=== PATIENT | female | born 1935 | race Caucasian/White ===

== ENCOUNTER 2019-10-09 22:43 | Inpatient (IN) | payer MEDICARE ==
[~2019-10-09] VITALS: Ht 162.6 cm; Wt 109.2 kg
--- NOTE | ~2019-10-09 | EC ---
PATIENT:HE MELARA DATE OF SERVICE: 10/10/19 SEX: F MEDICAL RECORD: [id number] DATE OF : 33 LOCATION:D.[facility] AGE OF PATIENT: 84 ADMISSION DATE: 10/10/19 REFERRING PHYSICIAN: INTERPRETING PHYSICIAN: PARVIN RIOS MD ECHOCARDIOGRAM REPORT ECHO CHARGES 4 ECHO COMPLETE Date: 10/13/19 CLINICAL DIAGNOSIS: CHF ECHOCARDIOGRAPHIC MEASUREMENTS (adult normal given) AC root (d.<3.7cm) 2.7 cm LV Septum d (<1.2 cm> 1.1 cm Valve Excursion 1.7 cm LV Septum (systole) 1.5 cm Left Atria (s.<4.0cm> 4.8 cm LVPW d(<1.2cm) 1.3 cm RV (d.<2.3cm) 3.2 cm LVPW (sytole) 1.4 cm LV diastole(<5.6CM) 4.5 cm MV E-F(>70mm/sec) cm LV systole 3.7 cm LVOT Diameter 1.7 cm MV exc.(>10mm) cm Est.ejection fraction (50-75%) % DOPPLER: LVIT cm/sec A 63 cm/sec E cm/sec LA cm/sec RVSP 34.8 mmHg LVOT 64 cm/sec AOP1/2T m/s Asc. Ao 218 cm/sec RVOT 47 cm/sec RA cm/sec PA 65 cm/sec AV Gradient Peak 19.0 mmHg AV Mean 12.7 mmHg AV Area 0.5 cm MV Gradient Peak 5.4 mmHg MV Mean 2.2 mmHg MV Area cm COMMENTS: Collection Advisor: Marlys [facility] Production Scheduler: Marilnyn Rios TAPE# PACS Pericardial Effusion N DATE OF SERVICE: PROCEDURE: Transthoracic echocardiogram. FINDINGS: 1. Left ventricle: Normal size, evidence of LVH, ejection fraction 30% to 35%. There is global hypokinesis. 2. Left atrium is moderately dilated at 4.8 cm. 3. Aortic valve appears to be normal. 4. Mitral valve has mild mitral regurgitation, otherwise structurally normal. ECHOCARDIOGRAM REPORT [id number] HE MELARA 5. Tricuspid valve has mild tricuspid regurgitation, RVSP of 34.8 mmHg. 6. Right ventricle is mild to moderately enlarged with mild global hypokinesis. 7. Right atrium is moderately enlarged. TRANSINT:[id number] Voice Confirmation ID: [id number] DOCUMENT ID: [id number] PARVIN RIOS MD CC: [id number] DICTATION DATE: 10/13/191718 ON SITE PROPERTY MANAGER: 10/13/19 174 ADM IN [facility] [id number] [place] [address]
--- NOTE | 2019-10-09 23:10 | NUR ---
PT TO RADIOLOGY VIA STRETCHER.
[2019-10-10] VITALS (7 sets, daily range): BP systolic 95–123; BP diastolic 50–79; Ht 162.6 cm; Wt 109.2 kg
--- NOTE | 2019-10-10 | NUR ---
PT RETURNED FROM RADIOLOGY.
[2019-10-10 00:58] LABS: BASOPHILS 0.3 % (0-2); EOSINOPHILS 1.6 % (0-7); HEMATOCRIT 40.5 % (36.0-48.0); HEMOGLOBIN 13.7 g/dL (12-16); IMMATURE GRANULOCYTES 0.3 % (0-5); LYMPHOCYTES 20.7 % (15-50); MCH 32.9 pg (26.0-34.0); MCHC 33.8 g/dL (31.0-37.0); MCV 97.1 fL (80.0-100.0); MEAN PLATELET VOLUME 10.4 fL (7.4-10.4); MONOCYTES 11.4 % (2-11); NEUTROPHILS 65.7 % (40-80); PLATELET COUNT 151 10x3/uL (130-400); RBC 4.17 10x6/uL (4.00-5.40); RDW 13.3 % (11.5-14.5); WBC 6.9 10x3/uL (4.8-10.8)
[2019-10-10 01:09] LABS: CALC OSMOLALITY 274 mosm/kg (275-300); CALCIUM 9.1 mg/dL (8.5-10.1); CARBON DIOXIDE 29.1 mmol/L (21.0-32.0); CHLORIDE - SERUM 101 mmol/L (98-107); CREATININE - SERUM 1.7 mg/dL (0.6-1.3); GLUCOSE 118 mg/dL (74-106); POTASSIUM - SERUM 3.6 mmol/L (3.5-5.1); SODIUM 134 mmol/L (136-145); UREA NITROGEN 29 mg/dL (7-18); eGFR NON AFRICAN AMERICAN 30 mL/min (90-120)
[2019-10-10 01:12] LABS: APTT 39.6 SECONDS (22.8-39.4); INR 2.75 (0.85-1.17); PROTIME 28.6 SECONDS (11.6-15.0)
--- NOTE | 2019-10-10 01:25 | NUR ---
PT ASSISTED WITH BEDPAN. DENIES ANY FURTHER NEEDS AT THIS TIME. WILL CONTINUE TO MONITOR.
[2019-10-10 01:30] LABS: ALBUMIN 3.2 g/dL (3.4-5.0); ALKALINE PHOSPHATASE 44 U/L (30-120); ALT (SGPT) 18 U/L (10-68); BILIRUBIN - TOTAL 1.31 mg/dL (0.2-1.3); CKMB 1.2 U/L (0.0-3.6); CREATINE KINASE 77 UL (21-215); MAGNESIUM - SERUM 1.4 mg/dL (1.8-2.4); PROTEIN - SERUM 7.2 g/dL (6.4-8.2); THYROID STIMULATING HORMONE 3.51 uIU/mL (0.36-3.74)
[2019-10-10 01:31] LABS: PRO BNP 0 pg/mL (0-450); TROPONIN-I < 0.017 ng/mL (0.000-0.060)
[2019-10-10 01:39] LABS: BILIRUBIN NEGATIVE (NEGATIVE); GLUCOSE NEGATIVE (NEGATIVE); KETONE NEGATIVE (NEGATIVE); NITRITE NEGATIVE (NEGATIVE); SPECIFIC GRAVITY 1.015 (1.005-1.020); UROBILINOGEN NORMAL (NORMAL)
[2019-10-10 01:40] LABS: BACTERIA NONE SEEN /hpf (NEGATIVE); EPITHELIAL CELLS 0-5 /hpf (0-5); RED CELLS - URINE NONE SEEN /hpf (0-5); UDS - AMPHET NEGATIVE QUAL (NEGATIVE); UDS - BARB NEGATIVE QUAL (NEGATIVE); UDS - BENZO NEGATIVE QUAL (NEGATIVE); UDS - COCAINE NEGATIVE QUAL (NEGATIVE); UDS - OPIATE NEGATIVE QUAL (NEGATIVE); UDS - PCP NEGATIVE QUAL (NEGATIVE); UDS - THC NEGATIVE QUAL (NEGATIVE); WHITE CELLS - URINE 0-5 /hpf (NEGATIVE)
--- NOTE | 2019-10-10 03:45 | NUR ---
PT ARRIVED VIA BED WITH ER NURSE [facility] AND ROOMMATE. ON 3L OF O2 VIA NC. PT TRANSFERRED TO UNIT BED. PUREWICK PLACED. CL IN REACH. BED IN LOW SIDE RAILS X2. DUCKWATER. WEARS READING GLASSES. 3 KENNY TO BACK OF HEAD. RIGHT FOREARM IV SALINE INFUSING AT 75M/HR. WILL CONTINUE TO MONITOR. PT ALSO HAS HOME CIPAP.
--- NOTE | 2019-10-10 04:00 | NUR ---
telemetry placed on pt and scd's in place. 92 controlled afib
--- NOTE | 2019-10-10 08:00 | NUR ---
PATIENT NEURO CHECKS COMPLETED. CL IN REACH. NO FURTHER NEEDS AT THIS TIME. SHIFT ASSESSMENT COMPLETE. BED ALARM ON. WCTM
[2019-10-10] MEDS ORDERED: FENOFIBRATE134 MG PO (10:05)
[2019-10-10] MEDS ORDERED: ZYRTEC10 MG PO (10:07)
[2019-10-10] MEDS ORDERED: PAXIL20 MG PO (10:07)
[2019-10-10] MEDS ORDERED: FISH OIL 1,0001 CA1 PO (10:08)
[2019-10-10] MEDS ORDERED: CHLORTHALIDONE25 MG PO (10:09)
[2019-10-10] MEDS ORDERED: XARELTO20 MG PO (10:10)
[2019-10-10] MEDS ORDERED: NEXIUM20 MG PO (10:10)
[2019-10-10] MEDS ORDERED: METOPROLOL TART50 MG PO ×2 (10:11→10:12)
--- NOTE | 2019-10-10 10:43 | NUR ---
PATIENT ROOMMATE IN ROOM. MED RECONCILED. TOLD HER TO TAKE HOME MEDICATIONS HOME AND SOON THEY RESTART HOME MEDS I WILL TREAT. CL IN REACH. BED ALARM ON. FRESH WATER GIVEN. NO FURTHER NEEDS AT THIS TIME. SUJEY
--- NOTE | 2019-10-10 13:56 | NUR ---
PATIENT SAT UP FOR LUNCH. BACK TO BED NOW. MID ASSIST. PATIENT ROOMMATE LEAVING. CL IN REACH. BED ALARM ON. TM
--- NOTE | 2019-10-10 20:00 | NUR ---
PATIENT RESTING IN BED WATCHING TV. NO S/S OF ACUTE DISTRESS. NO C/O AT THIS TIME. PATIENT IS CONFUSED TO SITUATION. PATIENT IS ON 2L OF O2 NASAL CANNULA. PATIENT WEARS A BIPAP FROM HOME AT NIGHT. PATIENT HAS A RIGHT FOREARM, NORMAL SALINE @ 75 ML/HR. IV IS PATENT WITHOUT REDNESS, SWELLING, OR TENDERNESS. PATIENT IS ON TELEMETRY: 101 UNCONTROLLED A-FIB. PATIENT HAS BACK BRACE ON. PATIENT HAS LACERATION WITH KENNY ON BACK OF HEAD. CALL LIGHT WITHIN REACH. BED ALARM ON. WILL CONTINUE TO MONITOR.
[2019-10-11] VITALS: BP 115/47
--- NOTE | 2019-10-11 02:59 | NUR ---
I have reviewed this patient and I concur with the Shift Assessment completed by the Licensed Practical Nurse today this shift.
--- NOTE | 2019-10-11 03:20 | NUR ---
PATIENT PULLED IV OUT, CATHETER TIP INTACT. WILL TRY TO PLACE ANOTHER. CALL LIGHT WITHIN REACH. BED ALARM ON. WILL CONTINUE TO MONITOR.
--- NOTE | 2019-10-11 03:40 | NUR ---
JEAN CLAUDE CUTLER, PLACE ANOTHER IV IN RIGHT FOREARM. IV IS PATENT WITHOUT REDNESS, SWELLING, OR TENDERNESS. CALL LIGHT WITHIN REACH. WILL CONTINUE TO MONITOR.
[2019-10-11 04:00] VITALS: BP 141/66
[2019-10-11 06:09] LABS: BASOPHILS 0 % (0-2); EOSINOPHILS 0 % (0-7); HEMATOCRIT 40.6 % (36.0-48.0); HEMOGLOBIN 13.4 g/dL (12-16); IMMATURE GRANULOCYTES 0.2 % (0-5); LYMPHOCYTES 9.2 % (15-50); MCH 32.1 pg (26.0-34.0); MCV 97.1 fL (80.0-100.0); MEAN PLATELET VOLUME 10.7 fL (7.4-10.4); MONOCYTES 6.5 % (2-11); NEUTROPHILS 84.1 % (40-80); RBC 4.18 10x6/uL (4.00-5.40); RDW 13.2 % (11.5-14.5)
[2019-10-11 06:20] LABS: PLATELET COUNT 187 10x3/uL (130-400); WBC 10.5 10x3/uL (4.8-10.8)
[2019-10-11 06:40] LABS: ALBUMIN 3.2 g/dL (3.4-5.0); ANION GAP 12.1 mmol/L (8-16); BILIRUBIN - TOTAL 0.78 mg/dL (0.2-1.3); CALCIUM 9.5 mg/dL (8.5-10.1); CARBON DIOXIDE 25.9 mmol/L (21.0-32.0); CREATININE - SERUM 1.8 mg/dL (0.6-1.3); MAGNESIUM - SERUM 1.9 mg/dL (1.8-2.4); PHOSPHOROUS 2.9 mg/dL (2.5-4.9); PROTEIN - SERUM 7.4 g/dL (6.4-8.2)
--- NOTE | 2019-10-11 07:00 | NUR ---
PATIENT HADN'T URINATED TO MY KNOWLEDGE AND I BLADDER SCANNED HER. THE PATIENT HAD 508 ML ACCORDING TO THE BLADDER SCANNER. PATIENT WAS ON THE PUREWICK, AND SAID THAT SHE FELT SHE NEEDED TO PEE. I GOT THE PATIENT UP TO THE BEDSIDE COMMODE AND SHE URINATED 550 ML. PATIENT TRANFERRED BACK TO BED. CALL LIGHT WITHIN REACH. BED ALARM ON. WILL CONTINUE TO MONITOR.
--- NOTE | 2019-10-11 08:00 | NUR ---
ASSESSMENT PER FLOW SHEET. PATIENT IS WITHOUT DISTRESS.CONFUSED THIS AM.FALL PREVENTION IN PLACE. MONITOR FOR NEEDS.
[2019-10-11 09:41] VITALS: BP 90/51
[2019-10-11 13:45] VITALS: BP 150/67
--- NOTE | 2019-10-11 15:55 | NUR ---
HAS REFUSED 1500 MEDS PER MAR. MORE CONFUSED THIS AFTERNOON.MONITOR
[2019-10-11 16:00] VITALS: BP 109/57
[2019-10-11 20:00] VITALS: BP 110/57
--- NOTE | 2019-10-11 20:00 | NUR ---
PATIENT RESTING IN BED WITH ROOM MATE AT [facility]. NO S/S OF ACUTE DISTRESS. NO C/O AT THIS TIME. PATIENT IS CONFUSED AND TALKING ABOUT "THE PEOPLE WHO ARE PAINTING THE CEILING TONIGHT." PATIENT WEARS 2L OF O2 NASAL CANNULA. PATIENT WEARS BIPAP FROM HOME AT BEDTIME. PATIENT HAS A RIGHT FOREARM IV, NORMAL SALINE @ 75 ML/HR. IV IS PATENT WITHOUT REDNESS, SWELLING, OR TENDERNESS. PATIENT IS ON TELEMETRY: 118 UNCONCTROLLED A-FIB. PATIENT HAS SCRATCHES ON RIGHT KNEE AND A LACERATION WITH KENNY ON THE BACK OF HER HEAD. CALL LIGHT WITHIN REACH. BED ALARM ON. WILL CONTINUE TO MONITOR.
[2019-10-12] VITALS: BP 112/87
--- NOTE | 2019-10-12 02:50 | NUR ---
TELEMETRY CALLED AND PATIENT'S TELEMETRY IS READING 153 BPM UNCONTROLLED A-FIB. ROSMERY REILLY WAS PAGED. ROSMERY ORDERED A CARDIOLOGY CONSULT. CARDIOLOGY CONSULT ORDERED WITH ON-CALL DOCTOR STACY. DR. KUMAR PAGED. DR. KUMAR ORDERED 5MG OF LOPRESSOR IV. JEAN CLAUDE GALAN, PUSHED LOPRESSOR IV. CALL LIGHT WITHIN REACH. BED ALARM ON. WILL CONTINUE TO MONITOR.
--- NOTE | 2019-10-12 02:59 | NUR ---
PATIENT IS NOW DOWN TO 124 BPM UNCONTROLLED A-FIB. CALL LIGHT WITHIN REACH. WILL CONTINUE TO MONITOR.
--- NOTE | 2019-10-12 03:52 | NUR ---
I have reviewed this patient and I concur with the Shift Assessment completed by the Licensed Practical Nurse today this shift.
[2019-10-12 04:00] VITALS: BP 102/71
[2019-10-12 05:29] LABS: BASOPHILS 0 % (0-2); EOSINOPHILS 0 % (0-7); HEMATOCRIT 42.2 % (36.0-48.0); HEMOGLOBIN 13.8 g/dL (12-16); IMMATURE GRANULOCYTES 0.3 % (0-5); LYMPHOCYTES 10.8 % (15-50); MCH 32.4 pg (26.0-34.0); MCHC 32.7 g/dL (31.0-37.0); MEAN PLATELET VOLUME 11.1 fL (7.4-10.4); MONOCYTES 5.4 % (2-11); NEUTROPHILS 83.5 % (40-80); RBC 4.26 10x6/uL (4.00-5.40); RDW 13.7 % (11.5-14.5); WBC 9.3 10x3/uL (4.8-10.8)
[2019-10-12 05:36] LABS: ANION GAP 10.9 mmol/L (8-16); CALCIUM 9.3 mg/dL (8.5-10.1); CARBON DIOXIDE 27.4 mmol/L (21.0-32.0); CREATININE - SERUM 1.8 mg/dL (0.6-1.3); MAGNESIUM - SERUM 1.8 mg/dL (1.8-2.4); POTASSIUM - SERUM 4.3 mmol/L (3.5-5.1)
[2019-10-12 05:41] LABS: MCV 99.1 fL (80.0-100.0); PLATELET COUNT 228 10x3/uL (130-400)
[2019-10-12 08:45] VITALS: BP 97/61
--- NOTE | 2019-10-12 09:00 | NUR ---
ASSESSMENT PER FLOW SHEET. PATIENT IS WITHOUT DISTRESS. FALL PREVENTION IN PLACE.
[2019-10-12 13:15] VITALS: BP 124/85
--- NOTE | 2019-10-12 15:43 | NUR ---
PATIENT HAS BEEN YELLING OUT AND PULLING CPAP AND O2 OFF. DOOR OPEN TO MONITOR
--- NOTE | 2019-10-12 17:30 | NUR ---
PATIENT UP NAKED IN VICENTE. SHE HAS PULLED OUT HER IV WITH CATH TIP INTACT. SHE REFUSES CPAP,TELEMETRY AND WANTS TO SIT IN CHAIR. REFUSES IV AT PRESENT
[2019-10-12 17:46] VITALS: BP 112/83
[2019-10-12 20:00] VITALS: BP 132/74
--- NOTE | 2019-10-12 20:00 | NUR ---
PATIENT IN BED WITH FRIEND AT BEDSIDE. NO S/S OF ACUTE DISTRESS. NO C/O AT THIS TIME. PATIENT IS CONFUSED AND VERY AGITATED. PATIENT IS ON 2L OF O2 WHEN SHE KEEPS IT ON. PATIENT IS SUPPOSED TO BE ON TELEMETRY, BUT SHE KEEPS TAKING IT OFF. PATIENT HAD TAKEN OUT HER IV DURING THE DAY, AND REFUSING ANOTHER ONE BEING PLACED AT THIS TIME. WILL TRY AGAIN LATER. PATIENT HAS SCRAPES TO THE RIGHT KNEE AND KENNY TO THE BACK OF HER HEAD. CALL LIGHT WITHIN REACH. BED ALARM ON. WILL CONTINUE TO MONITOR.
--- NOTE | 2019-10-12 22:00 | NUR ---
PATIENT CONTANTLY TRYING TO GET OUT OF BED EVEN WITH FIREND AT BEDSIDE. PATIENT WILL NOT LISTEN TO THE FRIEND OR TO ME. PATIENT IS CUSSING AND THROWING THINGS AT ANYONE THAT TRIES TO HELP HER. ROSMERY WAS PAGED. ROSMERY PUT IN AN ORDER FOR NATALIIA.
[2019-10-13] VITALS: BP 145/80
--- NOTE | 2019-10-13 02:46 | NUR ---
PATIENT IS RESTING IN BED WITH EYES CLOSED. O2 @ 2L ON. CALL LIGHT WITHIN REACH. BED ALARM ON. WILL CONTINUE TO MONITOR.
--- NOTE | 2019-10-13 03:36 | NUR ---
I have reviewed this patient and I concur with the Shift Assessment completed by the Licensed Practical Nurse today this shift.
[2019-10-13 04:00] VITALS: BP 111/70
[2019-10-13 07:52] LABS: ANION GAP 16.6 mmol/L (8-16); CALCIUM 9.6 mg/dL (8.5-10.1); CARBON DIOXIDE 22.7 mmol/L (21.0-32.0); CREATININE - SERUM 2.1 mg/dL (0.6-1.3); MAGNESIUM - SERUM 1.9 mg/dL (1.8-2.4)
[2019-10-13 07:53] LABS: BASOPHILS 0.1 % (0-2); EOSINOPHILS 0 % (0-7); HEMATOCRIT 45.2 % (36.0-48.0); IMMATURE GRANULOCYTES 0.8 % (0-5); LYMPHOCYTES 14.6 % (15-50); MCH 32.9 pg (26.0-34.0); MCHC 33.2 g/dL (31.0-37.0); MCV 99.1 fL (80.0-100.0); MONOCYTES 11.6 % (2-11); NEUTROPHILS 72.9 % (40-80); RBC 4.56 10x6/uL (4.00-5.40); RDW 13.8 % (11.5-14.5); WBC 11.5 10x3/uL (4.8-10.8)
[2019-10-13 07:55] LABS: PLATELET COUNT 154 10x3/uL (130-400)
[2019-10-13 07:58] LABS: POTASSIUM - SERUM 5.3 mmol/L (3.5-5.1)
[2019-10-13 08:59] VITALS: BP 115/44
[2019-10-13 12:10] VITALS: BP 124/92
--- NOTE | 2019-10-13 15:00 | NUR ---
ASSISTED PATIENT UP TO BSC AND BACK TO BED. IV INTACT. CALL LIGHT WITHIN REACH. FAMILY AT BEDSIDE.
[2019-10-13 16:50] VITALS: BP 125/88
--- NOTE | 2019-10-13 18:45 | NUR ---
PATIENT IV RESTARTED IN LEFT UPPER ARM X 1 STICK. PATIENT TOLERATED WITH SMALL AMOUNT OF PAIN. NO COMPLAINTS OR SIGNS OF DISTRESS. ASSISTED PATIENT UP TO BSC AND BACK TO BED. CALL LIGHT WITHN REACH. FAMILY AT BEDSIDE.
--- NOTE | 2019-10-13 18:47 | NUR ---
PATIENT IN BED WITH IV INTACT. NO COMPLAINTS OR SIGNS OF DISTRESS. FAMILY AT BEDSIDE. CALL LIGHT WITHIN REACH.
--- NOTE | 2019-10-13 19:20 | NUR ---
ASSISTED PATIENT BACK TO BED FROM [facility]. PATIENT VOIDED AND HAD SMALL BM. PATIENT AND GUEST AT BEDSIDE DENY NEEDS AT THIS TIME. BED IN LOWEST POSITION AND CALL LIGHT WITHIN REACH. ENCOURAGED THE PATIENT TO CALL IF SHE HAS NEEDS. WILL CONTINUE TO MONITOR.
[2019-10-13 20:00] VITALS: BP 130/75
[2019-10-14] VITALS: BP 133/89
[2019-10-14 04:00] VITALS: BP 132/87
[2019-10-14 05:36] LABS: BASOPHILS 0.1 % (0-2); EOSINOPHILS 0.4 % (0-7); HEMATOCRIT 44.2 % (36.0-48.0); HEMOGLOBIN 14.8 g/dL (12-16); IMMATURE GRANULOCYTES 1.1 % (0-5); LYMPHOCYTES 12.3 % (15-50); MCH 32.8 pg (26.0-34.0); MCHC 33.5 g/dL (31.0-37.0); MEAN PLATELET VOLUME 12.6 fL (7.4-10.4); MONOCYTES 10.5 % (2-11); NEUTROPHILS 75.6 % (40-80); PLATELET COUNT 128 10x3/uL (130-400); RBC 4.51 10x6/uL (4.00-5.40); RDW 13.7 % (11.5-14.5)
[2019-10-14 05:38] LABS: WBC 8.4 10x3/uL (4.8-10.8)
[2019-10-14 05:48] LABS: ANION GAP 15.7 mmol/L (8-16); CALCIUM 9.7 mg/dL (8.5-10.1); CARBON DIOXIDE 23.3 mmol/L (21.0-32.0); CREATININE - SERUM 1.6 mg/dL (0.6-1.3); MAGNESIUM - SERUM 1.7 mg/dL (1.8-2.4); PHOSPHOROUS 2.5 mg/dL (2.5-4.9)
[2019-10-14 08:27] VITALS: BP 132/68
[2019-10-14 12:41] VITALS: BP 151/63
--- NOTE | 2019-10-14 16:15 | NUR ---
walked in room. PATIENT BLUE IN FACE. SAT 84%. O2 WAS OFF. I PUT HER O2 ON. WOKE HER UP. TOLD HER TO DEEP BREATHE. SHE DID. GOT PULSE OX BACK UP TO 92% ON 3 L. ADDED HUMIDIFIER TO SEE IF THAT WOULD HELP HER KEEP IT ON. ASSISTED ON TO BEDPAN. AND OFF. IV STILL INTACT TO LEFT FOREARM. COVERED WITH SLEEVE. CL IN REACH. BED ALARM ON. WCTM
[2019-10-14 16:46] VITALS: BP 124/70
--- NOTE | 2019-10-14 19:00 | NUR ---
PATIENT RESTING IN BED WITH NO S/S OF DISTRESS. PATIENT DENIES NEEDS AT THIS TIME. BED IN LOWEST POSITION, CALL LIGHT WITHIN REACH, AND BED ALARM ON. ENCOURAGED THE PATIENT TO CALL IF SHE HAS NEEDS. WILL CONTINUE TO MONITOR.
--- NOTE | 2019-10-14 19:42 | NUR ---
RESPONDED TO PATIENT'S BED ALARM. PATIENT CLIMBING OUT OF BED. ASSISTED PATIENT TO THE BSC. PATIENT VOIDED. ASSISTED PATIENT BACK TO BED AND EDUCATED PATIENT ON USE OF THE CALL LIGHT. PATIENT VERBALIZED UNDERSTANDING AND RETURNED DEMONSTRATION. PATIENT DENIES OTHER NEEDS AT THIS TIME. BED IN LOWEST POSITION, CALL LIGHT WITHIN REACH, AND BED ALARM ON. ENCOURAGED THE PATIENT TO CALL IF SHE HAS NEEDS. WILL CONTINUE TO MONITOR.
[2019-10-14 20:00] VITALS: BP 131/94
--- NOTE | 2019-10-14 23:08 | NUR ---
ADMINISTERED MEDS PER ORDERS INCLUDING GEODON PER PATIENT REQUEST. ALSO ASSISTED PATIENT TO AND FROM BSC. PATIENT VOIDED. PATIENT DENIES OTHER NEEDS AT THIS TIME. BED IN LOWEST POSITION AND CALL LIGHT WITHIN REACH. BED ALARM ON. ENCOURAGED THE PATIENT TO CALL IF SHE HAS NEEDS. WILL CONTINUE TO MONITOR.
[2019-10-15] VITALS: BP 158/92
[2019-10-15 04:00] VITALS: BP 166/81
[2019-10-15 06:22] LABS: BASOPHILS 0.1 % (0-2); EOSINOPHILS 1.5 % (0-7); HEMATOCRIT 44.8 % (36.0-48.0); IMMATURE GRANULOCYTES 1.7 % (0-5); LYMPHOCYTES 15.2 % (15-50); MCH 32.5 pg (26.0-34.0); MCHC 33.5 g/dL (31.0-37.0); MEAN PLATELET VOLUME 10.8 fL (7.4-10.4); MONOCYTES 9.9 % (2-11); NEUTROPHILS 71.6 % (40-80); RBC 4.62 10x6/uL (4.00-5.40); RDW 13.5 % (11.5-14.5); WBC 8.2 10x3/uL (4.8-10.8)
[2019-10-15 06:24] LABS: PLATELET COUNT 164 10x3/uL (130-400)
[2019-10-15 06:31] LABS: APTT 32.3 SECONDS (22.8-39.4); INR 1.5 (0.85-1.17)
[2019-10-15 06:37] LABS: CREATININE - SERUM 1.2 mg/dL (0.6-1.3); DIGOXIN 0.24 ng/mL (0.90-2.00); MAGNESIUM - SERUM 1.6 mg/dL (1.8-2.4)
[2019-10-15 06:57] LABS: CARBON DIOXIDE 30.9 mmol/L (21.0-32.0)
[2019-10-15 06:58] LABS: POTASSIUM - SERUM 2.9 mmol/L (3.5-5.1)
[2019-10-15 08:41] VITALS: BP 126/77
--- NOTE | 2019-10-15 09:00 | NUR ---
PATIENT ASSISTED ON AND OFF BSC VIA ADAM. ADAM SET UP THE PATIENTS TRAY AND PATIENT STARTED FEEDING HERSELF. BED ALARM ON. CL IN REACH. WCTM
--- NOTE | 2019-10-15 10:55 | MORECARE ---
CASE MANAGEMENT DISCHARGE SUMMARY PATIENT: HE MELARA UNIT: [id number] ADM DATE: 10/10/19 AGE: 84 : 34 SEX: F ROOM/BED: D.2201 AUTHOR: COBY ARAUJO PHYSICIAN: REFERRING PHYSICIAN: ЕЛЕНА HAMM DO DATE OF SERVICE: 10/15/19 Discharge Plan Patient Name: HE MELARA Facility: [facility]:[place] : 1935 Planned Disposition: Home or Self Care Anticipated Discharge Date: Discharge Date: Expected LOS: Initial Reviewer: [email or web address] Initial Review Date: 10/10/2019 Generated: 10/15/19 11:54 am Comments DCP- Discharge Planning Updated by [email or web address]: Christina Rodas on 10/15/19 9:[address] Patient Name: HE MELARA Admission Status: ER Accout number: [id number] Admission Date: 10-10-2019 : 1935 Admission Diagnosis:UNSP FRACTURE OF T11-T12 VERTEBRA, INIT FOR CLOS FX Attending: ЕЛЕНА HAMM Current LOS: 5 Anticipated DC Date: Planned Disposition: Home or Self Care Primary Insurance: MEDICARE A & B Discharge Planning Comments: CM went to speak with patient about discharge plans, but she was sleeping and per nurse is still confused. I called and spoke with Divya her roommate of 11 years. Divya states that she is independent with her care at home. She uses a cane (at times) and a CPAP machine at night. She also stated that she is NOT confused on a normal day. Her prior level of function is independent who drives and does the cross word puzzle everyday. Her roommate stated that she had just came home from getting a pedicure and ate something and just fell and hit her head on the frig. I have reported all of this to MELBA Traore. CM will continue to follow and assist as needed Bolt Sawyer: Christina Rodas DCPIA - Discharge Planning Initial Assessment Updated by [email or web address]: Christina Rodas on 10/15/19 10:47 am * Is the patient Alert and Oriented? Yes * PCP JORGE LUIS ( [facility]) * Pharm[facility] * Preadmission Environment Home with Family * ADLs Independent * Equipment CPAP * List name and contact numbers for known caregivers / representatives who currently or will assist patient after discharge: DIVYA VALLE [phone] * Verbal permission to speak to the caregivers and representatives has been obtained from the patient. N/A * Community resources currently utilized None * Additional services required to return to the preadmission environment? Yes * Can the patient safely return to the preadmission environment? Yes * Has this patient been hospitalized within the prior 30 days at any hospital? No Patient Name: HE MELARA Page [phone] at 1055 All edits/amendments must be made on the electronic document DICTATION DATE: 10/15/191053 NARCOTICS AND VICE DETECTIVE: ALVINO 10/15/19 105 RPT#: [id number] DC DATE: STATUS: ADM IN [facility] [address] [place] [address] END OF REPORT
[2019-10-15 12:07] VITALS: BP 113/61
--- NOTE | 2019-10-15 14:33 | NUR ---
Nutrition Follow-up: Diet: Renal PO intake: ~65% average x last 6 meals Last BM: 10/14/19. WT: 260# (10/10/19), no new weight Meds noted: lasix. Labs noted: K 2.9(L), BUN 32(H), GFR 45(L), PO4 2.0(L) Recommend continue current diet. RD following.
[2019-10-15 16:42] VITALS: BP 109/67
[2019-10-15 20:00] VITALS: BP 110/62
--- NOTE | 2019-10-15 20:00 | NUR ---
PT SITTING UP IN BED WITHOUT DISTRESS, ORIENTED TO SELF AND PLACE. IV LEFT FA SL. O2 3L/NC. ASSISTED PT UP TO BEDSIDE COMMODE AND BACK TO BED. REFUSES CPAP. SCDS ON. BED ALARM ON. DENIES NEEDS AT THIS TIME. CL IN REACH, WILL CTM
--- NOTE | 2019-10-15 23:20 | NUR ---
PT LYING IN BED SLEEPING WTIHOUT DISTRESS, SCDS ON. BED ALARM. CL IN REACH, WILL CTM
[2019-10-16] VITALS: BP 123/73
--- NOTE | 2019-10-16 03:20 | NUR ---
ASSISTED PT TO BEDSIDE COMMODE AND BACK TO BED. DENIES OTHER NEEDS. BED ALARM ON, CL IN REACH. WILL CTM
[2019-10-16 04:00] VITALS: BP 93/66
[2019-10-16 04:48] LABS: BASOPHILS 0.1 % (0-2); EOSINOPHILS 4.6 % (0-7); HEMATOCRIT 44.3 % (36.0-48.0); LYMPHOCYTES 19.9 % (15-50); MCH 32.7 pg (26.0-34.0); MCHC 33.9 g/dL (31.0-37.0); MCV 96.5 fL (80.0-100.0); MEAN PLATELET VOLUME 10.8 fL (7.4-10.4); MONOCYTES 11.4 % (2-11); PLATELET COUNT 170 10x3/uL (130-400); RBC 4.59 10x6/uL (4.00-5.40); RDW 13.4 % (11.5-14.5); WBC 6.7 10x3/uL (4.8-10.8)
[2019-10-16 04:59] LABS: ANION GAP 9.6 mmol/L (8-16); BILIRUBIN - TOTAL 1.56 mg/dL (0.2-1.3); CALCIUM 9.7 mg/dL (8.5-10.1); CARBON DIOXIDE 30.8 mmol/L (21.0-32.0); CREATININE - SERUM 1.4 mg/dL (0.6-1.3); MAGNESIUM - SERUM 1.8 mg/dL (1.8-2.4); PHOSPHOROUS 2.2 mg/dL (2.5-4.9); POTASSIUM - SERUM 3.4 mmol/L (3.5-5.1); PROTEIN - SERUM 6.7 g/dL (6.4-8.2)
--- NOTE | 2019-10-16 07:00 | NUR ---
RECIEVED PT FROM PRESS TENDER. PT RESTING IN BED WITH EYES CLOSED UPON ENTERING. BREATHING IS EVEN AND UNLABORED. NO S/S OF DISTRESS NOTED AT THIS TIME. 2L HUMIDIFIED O2 VIA NC, LEFT WRIST IV SL, TELEMETRY, UP WITH MINIMAL ASSISTANCE. TSLO BACK BRACE FOR T12 FRACTURE. CONFUSED AT TIMES TO PLACE AND SITUATION. SCD'S ON. BED IN LOWEST POSITION, BED RAILS X2, CALL LIGHT WITHIN REACH. WILL CONTINUE TO MONITOR.
--- NOTE | 2019-10-16 08:30 | NUR ---
PT ALERT AND ORIENTED TO SELF AND SITUATION. VISITOR IN ROOM AT THIS TIME. ADMINISTERED MEDICATION AT THIS TIME, NO DIFFICULTIES. PT UPRIGHT IN BED EATING BREAKFAST. DENIES ANY NEEDS. WILL CONTINUE TO MONITOR.
[2019-10-16 09:11] VITALS: BP 126/59
--- NOTE | 2019-10-16 11:45 | NUR ---
ADMINISTERED PO MAG OX FOR ELECTROLYTE REPLACEMENT. HELD LOPRESSOR DUE TO LOW BLOOD PRESSURE. RESTING IN BED. DENIES ANY NEEDS. WILL CONTINUE TO MONITOR.
[2019-10-16 12:22] VITALS: BP 99/48
[2019-10-16 13:50] LABS: ANION GAP 12.1 mmol/L (8-16); CALCIUM 9.6 mg/dL (8.5-10.1); CARBON DIOXIDE 28.1 mmol/L (21.0-32.0); CREATININE - SERUM 1.4 mg/dL (0.6-1.3)
[2019-10-16 13:51] LABS: POTASSIUM - SERUM 4.2 mmol/L (3.5-5.1)
[2019-10-16 14:01] LABS: BILIRUBIN - TOTAL 1.21 mg/dL (0.2-1.3); PROTEIN - SERUM 6.3 g/dL (6.4-8.2)
--- NOTE | 2019-10-16 14:59 | NUR ---
ADMINISTERED MEDICATION, NO DIFFICULTIES. PT RESTING IN BED COMFORTABLY. DENIES ANY NEEDS. WILL CONTINUE TO MONITOR.
[2019-10-16 17:04] VITALS: BP 90/41
--- NOTE | 2019-10-16 19:45 | NUR ---
PT SITTING UP IN BED WITHOUT DISTRESS, AOX4. IV LEFT FA SL. O2 2L/NC. VISITOR AT BEDSIDE. SCDS ON. BED ALARM ON. HR 133 UNCONTROLLED AFIB PER TELE. TSLO BRACE OFF WHILE LYING IN BED. DENIES NEEDS AT THIS TIME. CL IN REACH, WILL CTM
[2019-10-16 20:00] VITALS: BP 124/75
--- NOTE | 2019-10-16 21:00 | NUR ---
PT TOOK MEDS WITHOUT DIFFICULTY. VISITOR LEFT AT THIS TIME. CL IN REACH, WILL CTM
--- NOTE | 2019-10-16 23:20 | NUR ---
PT GIVEN BATH AT THIS TIME. HAIR MATTED ON BACK OF HEAD. THIS NURSE AND AID SPENT 1 HOUR DETANGLING HAIR. PT AMBULATED TO BEDSIDE COMMODE AND VOIDED AFTER THEN BACK TO BED. DENIES FURTHER NEEDS. BED ALARM ON. CL IN REACH, WILL CTM
[2019-10-17] VITALS (7 sets, daily range): BP systolic 90–136; BP diastolic 55–81
[2019-10-17 07:01] LABS: BASOPHILS 0.4 % (0-2); EOSINOPHILS 4.9 % (0-7); HEMATOCRIT 48.1 % (36.0-48.0); HEMOGLOBIN 15.8 g/dL (12-16); IMMATURE GRANULOCYTES 1.5 % (0-5); LYMPHOCYTES 19.9 % (15-50); MCH 32.2 pg (26.0-34.0); MCHC 32.8 g/dL (31.0-37.0); MCV 98.2 fL (80.0-100.0); MEAN PLATELET VOLUME 10.1 fL (7.4-10.4); MONOCYTES 13.5 % (2-11); NEUTROPHILS 59.8 % (40-80); PLATELET COUNT 173 10x3/uL (130-400); RDW 13.4 % (11.5-14.5); WBC 8.2 10x3/uL (4.8-10.8)
--- NOTE | 2019-10-17 07:30 | NUR ---
REC'D IN BED AWAKE AND ALERT TO SELF ONLY. RESP EVEN AND UNLABORED WITH NO DISTRESS NOTED. CAN EXPRESS NEEDS AND WANTS. ASSISTANCE TO BSC X 1. NO C/O NOTED OR VOICED. ASSESSMENT COMPLETED. C/L IN REACH A BEDSIDE
[2019-10-17 07:37] LABS: ALBUMIN 3.2 g/dL (3.4-5.0); ANION GAP 10.3 mmol/L (8-16); BILIRUBIN - TOTAL 1.36 mg/dL (0.2-1.3); CALCIUM 10.3 mg/dL (8.5-10.1); CARBON DIOXIDE 30.3 mmol/L (21.0-32.0); CREATININE - SERUM 1.5 mg/dL (0.6-1.3); MAGNESIUM - SERUM 1.6 mg/dL (1.8-2.4); POTASSIUM - SERUM 3.6 mmol/L (3.5-5.1); PROTEIN - SERUM 7.3 g/dL (6.4-8.2)
[2019-10-17 07:40] LABS: INR 1.11 (0.85-1.17); PROTIME 14.3 SECONDS (11.6-15.0)
[2019-10-17 07:46] LABS: PHOSPHOROUS 2.9 mg/dL (2.5-4.9)
--- NOTE | 2019-10-17 09:53 | NUR ---
I have reviewed this patient and I concur with the Shift Assessment completed by the Licensed Practical Nurse today this shift.
--- NOTE | 2019-10-17 19:30 | NUR ---
PT SITTING UP IN BED WITHOUT DISTRESS, ORIENTED TO SELF AND KNOWS SHE IS IN A HOSPITAL. FREQUENTLY REORIENTED TO TIME AND SITUATION. IV LEFT FA SL. O2 2L/NC. SCDS ON. FRIEND AT BEDSIDE. DENIES NEEDS AT THIS TIME. CL IN REACH, WILL CTM
--- NOTE | 2019-10-17 21:30 | NUR ---
PT TOOK MEDS WITHOUT DIFFICULTY. PT ASSISTED TO BEDSIDE COMMODE WITH MINIMAL ASSIST AND BACK TO BED. BED ALARM ON. CL IN REACH, WILL CTM
[2019-10-18] VITALS: BP 106/55
[2019-10-18 04:00] VITALS: BP 97/65
[2019-10-18 06:10] LABS: HEPATITIS C ANTIBODY 0.3 S/CO RAT (0.0-0.9)
[2019-10-18 06:40] LABS: BASOPHILS 0.4 % (0-2); EOSINOPHILS 39.4 % (0-7); HEMATOCRIT 49.2 % (36.0-48.0); HEMOGLOBIN 16.4 g/dL (12-16); IMMATURE GRANULOCYTES 3.5 % (0-5); LYMPHOCYTES 10.6 % (15-50); MCH 32.6 pg (26.0-34.0); MCHC 33.3 g/dL (31.0-37.0); MCV 97.8 fL (80.0-100.0); MEAN PLATELET VOLUME 12.3 fL (7.4-10.4); MONOCYTES 6.8 % (2-11); NEUTROPHILS 39.3 % (40-80); RBC 5.03 10x6/uL (4.00-5.40); RDW 13.5 % (11.5-14.5)
[2019-10-18 06:49] LABS: PLATELET COUNT 137 10x3/uL (130-400); WBC 13.6 10x3/uL (4.8-10.8)
[2019-10-18 07:00] LABS: ALBUMIN 3.3 g/dL (3.4-5.0); ANION GAP 10.3 mmol/L (8-16); BILIRUBIN - TOTAL 1.51 mg/dL (0.2-1.3); CALCIUM 9.9 mg/dL (8.5-10.1); CARBON DIOXIDE 30.6 mmol/L (21.0-32.0); CREATININE - SERUM 1.5 mg/dL (0.6-1.3); MAGNESIUM - SERUM 1.6 mg/dL (1.8-2.4); PHOSPHOROUS 3.6 mg/dL (2.5-4.9); POTASSIUM - SERUM 3.9 mmol/L (3.5-5.1); URIC ACID 8.9 mg/dL (2.6-7.2)
[2019-10-18 07:25] LABS: EOSINOPHILS 4 % (0-7); LYMPHOCYTES 18 % (15-50); MONOCYTES 1 % (2-11); NEUTROPHILS 77 % (40-80)
[2019-10-18 07:26] LABS: PLATELET ESTIMATE NORMAL
--- NOTE | 2019-10-18 07:56 | NUR ---
PT RESTING IN BED WITH EYES CLOSED, EASILY AROUSED TO SPEECH, ALERT BUT CONFUSED. IV LOCATED TO LEFT FOREARM CURRENTLY SL. CURRENTLY RCVING 2L VIA NC. DENIES NEEDS AT THIS TIME, WILL CONT TO MONITOR.
[2019-10-18 09:22] VITALS: BP 124/70
--- NOTE | 2019-10-18 13:02 | NUR ---
Nutrition Follow-up: Noted Nutrition Consult. Diet: Renal PO intake: ~32% average x last 5 meals; Spoke with patient's friend at bedside who states that patient's appetite is improving some. She gave several food preferences/request. Last BM: 10/17/19. Wt: 240.3# (10/18/19); Admit Wt: 260# (10/10/19) Meds noted: lactulose, lasix Labs noted: Na 134(L), K 3.9(WNL), BUN 34(H), Cr 1.5(H), GFR 35(L), Alb 3.3(L) Will update diet preferences. Will liberalize diet order to Cardiac diet to hopefully help improve appetite and PO Intake. Will add Ensure if PO intake does not improve with diet liberalization. Encouraged friend to continue to encourage PO intake at meal times. Thank you for nutrition consult. RD following.
[2019-10-18 13:14] VITALS: BP 119/91
[2019-10-18 17:22] VITALS: BP 132/77
--- NOTE | 2019-10-18 19:00 | NUR ---
BEDSIDE REPORT RECEIVED AND CARE OF PT ASSUMED. PT LYING IN SUPINE POSITION WITH EYES CLOSED. IV TO LEFT FA SALINE LOCKED. TELEMETRY IN USE AND READING UNCONTROLLED A-FIB AT 130 AT THIS ASSESSMENT. BED ALARM IN USE. FAMILY MEMBER IS AT BEDSIDE.
[2019-10-18 20:00] VITALS: BP 127/49
--- NOTE | 2019-10-18 20:06 | NUR ---
HS MEDICATIONS GIVEN. PT REFUSED LACTULOSE SHE HAS HAD VERY LOOSE STOOLS ALL AFTERNOON.
[2019-10-19] VITALS: BP 124/56
[2019-10-19 04:00] VITALS: BP 129/60
[2019-10-19 05:50] LABS: BASOPHILS 0.3 % (0-2); EOSINOPHILS 2.9 % (0-7); HEMATOCRIT 52.7 % (36.0-48.0); HEMOGLOBIN 17.4 g/dL (12-16); LYMPHOCYTES 21.3 % (15-50); MCV 97.1 fL (80.0-100.0); MEAN PLATELET VOLUME 11.1 fL (7.4-10.4); MONOCYTES 11.3 % (2-11); NEUTROPHILS 63.2 % (40-80); PLATELET COUNT 129 10x3/uL (130-400); RBC 5.43 10x6/uL (4.00-5.40); RDW 13.6 % (11.5-14.5)
[2019-10-19 06:06] LABS: ALBUMIN 3.6 g/dL (3.4-5.0); ANION GAP 8.5 mmol/L (8-16); BILIRUBIN - TOTAL 1.76 mg/dL (0.2-1.3); CALCIUM 10.1 mg/dL (8.5-10.1); CARBON DIOXIDE 32.1 mmol/L (21.0-32.0); CREATININE - SERUM 1.7 mg/dL (0.6-1.3); DIGOXIN 0.2 ng/mL (0.90-2.00); MAGNESIUM - SERUM 1.7 mg/dL (1.8-2.4); PHOSPHOROUS 3.2 mg/dL (2.5-4.9); POTASSIUM - SERUM 3.6 mmol/L (3.5-5.1); PROTEIN - SERUM 8.5 g/dL (6.4-8.2)
--- NOTE | 2019-10-19 06:49 | NUR ---
MAG LEVEL 1.7 THIS AM REQUIRING COVERAGE WITH 400 MG PO Q4HR X2 PER THE ELECTROLYTE PROTOCOL. FIRST DOSE GIVEN, AND WILL PASS ALONG IN REPORT.
[2019-10-19 09:12] VITALS: BP 111/62
--- NOTE | 2019-10-19 09:17 | NUR ---
ASSISTED PT TO BSC, PER DAUGHTER IN RROM PT ATE A GOOD BREAKFAST, NO S/SX OF DISTRESS, CL IN REACH. ADMINISTERED SCHEDULED MEDICATIONS. CONTINUE WITH PLAN OF CARE
[2019-10-19 13:11] VITALS: BP 115/73
--- NOTE | 2019-10-19 15:36 | NUR ---
PT IS STILL HAVING UNCONTROLLED PAIN, PER Danie REILLY CALL ANESTHESIA IN OR, SPOKE TO KELLEN W/ ANESTHESIA AND AFTER GIVING HIM ALL INFORMATION, I WAS ENCOURAGED TO PAGE DR AC. WILL PUT PAGE INTO DRMelissa CONTINUE WITH PLAN OF CARE
[2019-10-19 17:05] VITALS: BP 119/69
--- NOTE | 2019-10-19 19:00 | NUR ---
BEDSIDE REPORT RECEIVED AND CARE OF PT ASSUMED. PT LYING IN LOW GILMORE'S POSITION WITH EYES CLOSED. IV TO LEFT FA SALINE LOCKED. TELEMETRY IN PLACE AND READING 106 UNCONTROLLED A-FIB AT THIS ASSESSMENT. WILL MONITOR FOR NEEDS. FAMILY MEMBER IS AT BEDSIDE.
--- NOTE | 2019-10-19 19:38 | NUR ---
I have reviewed this patient and I concur with the Shift Assessment completed by the Licensed Practical Nurse today this shift.
--- NOTE | 2019-10-19 20:12 | NUR ---
HS MEDICATIONS GIVEN. PT REFUSED LACTULOSE SHE IS ALREADY HAVING VERY LOOSE STOOLS. WILL CONTINUT TO MONITOR FOR NEEDS.
[2019-10-19 20:15] VITALS: BP 110/58
--- NOTE | 2019-10-19 21:20 | NUR ---
TELEMETRY REPORTS 92 CONTROLLED A-FIB AT THIS ASSESSMENT.
[2019-10-20 01:11] VITALS: BP 124/86
[2019-10-20 05:31] LABS: BASOPHILS 0.6 % (0-2); EOSINOPHILS 2.9 % (0-7); HEMATOCRIT 52.5 % (36.0-48.0); HEMOGLOBIN 17.6 g/dL (12-16); IMMATURE GRANULOCYTES 0.8 % (0-5); LYMPHOCYTES 23.2 % (15-50); MCHC 33.5 g/dL (31.0-37.0); MCV 98.5 fL (80.0-100.0); MEAN PLATELET VOLUME 11.6 fL (7.4-10.4); MONOCYTES 13.2 % (2-11); NEUTROPHILS 59.3 % (40-80); RBC 5.33 10x6/uL (4.00-5.40); RDW 13.9 % (11.5-14.5); WBC 8.3 10x3/uL (4.8-10.8)
[2019-10-20 05:32] LABS: PLATELET COUNT 100 10x3/uL (130-400)
[2019-10-20 06:36] VITALS: BP 128/82
--- NOTE | 2019-10-20 06:37 | NUR ---
BATH PERFORMED AND ALL LINENS AND GOWN CHANGED.
[2019-10-20 06:41] LABS: ALBUMIN 3.3 g/dL (3.4-5.0); ANION GAP 9.3 mmol/L (8-16); BILIRUBIN - TOTAL 1.55 mg/dL (0.2-1.3); CALCIUM 9.8 mg/dL (8.5-10.1); CARBON DIOXIDE 27.5 mmol/L (21.0-32.0); CREATININE - SERUM 1.8 mg/dL (0.6-1.3); MAGNESIUM - SERUM 1.7 mg/dL (1.8-2.4); PHOSPHOROUS 3.8 mg/dL (2.5-4.9); POTASSIUM - SERUM 3.8 mmol/L (3.5-5.1); PROTEIN - SERUM 7.7 g/dL (6.4-8.2)
[2019-10-20 08:30] VITALS: BP 95/57
[2019-10-20 12:21] VITALS: BP 108/70
[2019-10-20 17:48] VITALS: BP 95/57
--- NOTE | 2019-10-20 19:00 | NUR ---
BEDSIDE REPORT RECEIVED AND CARE OF PT ASSUMED. PT LYING IN LOW GILMORE'S POSITION VISITING WITH FAMILY MEMBER. IV TO LEFT FA SALINE LOCKED. TELEMETRY IN PLACE AND READING 113 UNCONTROLLED A-FIB AT THIS ASSESSMENT. BED ALARM IN USE FOR SAFETY. WILL MONITOR FOR NEEDS.
[2019-10-20 20:08] VITALS: BP 111/65
--- NOTE | 2019-10-20 21:04 | NUR ---
HS MEDICATIONS GIVEN. PT DECLINED LACTULOSE THIS EVENING. WILL CONTINUE TO MONITOR FOR NEEDS.
[2019-10-21 00:57] VITALS: BP 96/60
[2019-10-21 04:00] VITALS: BP 115/61
[2019-10-21 05:04] LABS: BASOPHILS 0.2 % (0-2); EOSINOPHILS 2.8 % (0-7); HEMOGLOBIN 16.2 g/dL (12-16); IMMATURE GRANULOCYTES 0.9 % (0-5); LYMPHOCYTES 19.9 % (15-50); MCH 32.5 pg (26.0-34.0); MCHC 33.8 g/dL (31.0-37.0); MEAN PLATELET VOLUME 10.9 fL (7.4-10.4); MONOCYTES 11.5 % (2-11); NEUTROPHILS 64.7 % (40-80); PLATELET COUNT 113 10x3/uL (130-400); RBC 4.99 10x6/uL (4.00-5.40); RDW 13.5 % (11.5-14.5); WBC 8.2 10x3/uL (4.8-10.8)
[2019-10-21 05:15] LABS: MCV 96.2 fL (80.0-100.0)
[2019-10-21 05:24] LABS: ALBUMIN 3.2 g/dL (3.4-5.0); ANION GAP 10.1 mmol/L (8-16); BILIRUBIN - TOTAL 1.56 mg/dL (0.2-1.3); CALCIUM 9.7 mg/dL (8.5-10.1); CARBON DIOXIDE 28.6 mmol/L (21.0-32.0); CREATININE - SERUM 1.8 mg/dL (0.6-1.3); MAGNESIUM - SERUM 1.8 mg/dL (1.8-2.4); PHOSPHOROUS 3.5 mg/dL (2.5-4.9); POTASSIUM - SERUM 3.7 mmol/L (3.5-5.1); PROTEIN - SERUM 7.5 g/dL (6.4-8.2)
[2019-10-21 09:12] VITALS: BP 120/58
--- NOTE | 2019-10-21 11:30 | NUR ---
CALL LIGHT ANSERED. PT ASSISTED TO BEDSIDE COMMODE WITH MINIMAL ASSIST. SMALL BM X1. ASSISTED WITH WIPING. PT BACK TO BED. BED IN LOWEST POSITION. CALL LIGHT WITHIN REACH. WILL CONTINUE TO MONITOR.
[2019-10-21 12:38] VITALS: BP 116/48
--- NOTE | 2019-10-21 15:55 | NUR ---
Rehab Prescreening Consult recieved and the chart has been reviewed. She is a good ARU candidate if she feels she can participate in the 3 hrs of therapy prior to having her khypoplasty. She also has a GI consult for elevated LFT's. Rehab will follow. Nat Mcdonald RN Clinical liaison, Rehab
[2019-10-21 16:55] VITALS: BP 91/60
[2019-10-21 20:00] VITALS: BP 112/57
--- NOTE | 2019-10-22 01:11 | NUR ---
CALL LIGHT ANSWERED. ASSISTED PT TO BATHROOM. CALL LIGHT RECIEVED. INSTRUCTED TO CALL WHEN SHE IS FINISHED.
--- NOTE | 2019-10-22 02:30 | NUR ---
PT LAYING SUPINE, RR EVEN AND UNLABORED. CALL LIGHT WITHIN REACH. WILL CONTINUE TO MONITOR.
[2019-10-22 04:00] VITALS: BP 114/66
[2019-10-22 04:40] LABS: BASOPHILS 0.2 % (0-2); EOSINOPHILS 1.8 % (0-7); HEMATOCRIT 50.2 % (36.0-48.0); HEMOGLOBIN 16.8 g/dL (12-16); IMMATURE GRANULOCYTES 0.6 % (0-5); LYMPHOCYTES 17.3 % (15-50); MCH 32.6 pg (26.0-34.0); MCHC 33.5 g/dL (31.0-37.0); MCV 97.3 fL (80.0-100.0); MEAN PLATELET VOLUME 11.5 fL (7.4-10.4); MONOCYTES 11.9 % (2-11); NEUTROPHILS 68.2 % (40-80); PLATELET COUNT 105 10x3/uL (130-400); RBC 5.16 10x6/uL (4.00-5.40); RDW 13.5 % (11.5-14.5); WBC 9.4 10x3/uL (4.8-10.8)
[2019-10-22 05:02] LABS: ALBUMIN 3.5 g/dL (3.4-5.0); ANION GAP 12.9 mmol/L (8-16); BILIRUBIN - TOTAL 1.75 mg/dL (0.2-1.3); CALCIUM 9.8 mg/dL (8.5-10.1); CARBON DIOXIDE 27.2 mmol/L (21.0-32.0); CREATININE - SERUM 1.9 mg/dL (0.6-1.3); DIGOXIN 0.64 ng/mL (0.90-2.00); MAGNESIUM - SERUM 1.9 mg/dL (1.8-2.4); POTASSIUM - SERUM 4.1 mmol/L (3.5-5.1); PROTEIN - SERUM 7.7 g/dL (6.4-8.2)
[2019-10-22 08:00] VITALS: BP 109/55
--- NOTE | 2019-10-22 10:00 | NUR ---
ASSESSMENT PER FLOW SHEET. PATIENT IS WITHOUT DISTRESS.CALL LIGHT IN REACH. BED ALARM,DOOR OPEN TO MONITOR
[2019-10-22] MEDS ORDERED: LOVENOX INJ100 MG/ML SC (13:38)
[2019-10-22] MEDS ORDERED: TESSALON PERLE100 MG PO (13:39)
[2019-10-22] MEDS ORDERED: MUCINEX600 MG PO (13:39)
[2019-10-22] MEDS ORDERED: LANOXIN125 MCG PO (13:39)
[2019-10-22] MEDS ORDERED: LOPRESSOR25 MG PO (13:39)
[2019-10-22] MEDS ORDERED: FLUTICASONE PRO16 GM NASAL (13:40)
--- NOTE | 2019-10-22 15:55 | NUR ---
RIGHT KNEE HAS DRY SCABS. NO DRAINAGE OR ODOR.
--- NOTE | 2019-10-22 16:13 | NUR ---
REPORT TO [facility] ON REHAB
--- NOTE | 2019-10-22 17:36 | NUR ---
PATIENT TO ROOM 1108 A. CALL TO FAMILY TO INFORM THEM.
--- NOTE | 2019-10-23 17:13 | MORECARE ---
CASE MANAGEMENT DISCHARGE SUMMARY PATIENT: HE MELARA UNIT: [id number] ADM DATE: 10/10/19 AGE: 84 : 34 SEX: F ROOM/BED: D.2201 AUTHOR: COBY ARAUJO PHYSICIAN: REFERRING PHYSICIAN: ЕЛЕНА HAMM DO DATE OF SERVICE: 10/23/19 Discharge Plan Patient Name: HE MELARA Facility: [facility]:[place] : 1935 Planned Disposition: Home or Self Care Anticipated Discharge Date: Discharge Date: 10/22/2019 Expected LOS: Initial Reviewer: [email or web address] Initial Review Date: 10/10/2019 Generated: 10/23/19 6:12 pm DCP- Discharge Planning Updated by [email or web address]: Christina Rodas on 10/15/19 9:[address] Patient Name: HE MELARA Admission Status: ER Accout number: [id number] Admission Date: 10-10-2019 : 1935 Admission Diagnosis:UNSP FRACTURE OF T11-T12 VERTEBRA, INIT FOR CLOS FX Attending: ЕЛЕНА HAMM Current LOS: 5 Anticipated DC Date: Planned Disposition: Home or Self Care Primary Insurance: MEDICARE A & B Discharge Planning Comments: CM went to speak with patient about discharge plans, but she was sleeping and per nurse is still confused. I called and spoke with Divya her roommate of 11 years. Divya states that she is independent with her care at home. She uses a cane (at times) and a CPAP machine at night. She also stated that she is NOT confused on a normal day. Her prior level of function is independent who drives and does the cross word puzzle everyday. Her roommate stated that she had just came home from getting a pedicure and ate something and just fell and hit her head on the frig. I have reported all of this to MELBA Traore. CM will continue to follow and assist as needed Fish And Wildlife Biologist: Christina Rodas DCPIA - Discharge Planning Initial Assessment Updated by [id number]: Christina Rodas on 10/15/19 10:47 am * Is the patient Alert and Oriented? Yes * PCP JORGE LUIS ( [facility]) * Pharmacy [facility] * Preadmission Environment Home with Family * ADLs Independent * Equipment CPAP * List name and contact numbers for known caregivers / representatives who currently or will assist patient after discharge: DIVYA VALLE [phone] * Verbal permission to speak to the caregivers and representatives has been obtained from the patient. N/A * Community resources currently utilized None * Additional services required to return to the preadmission environment? Yes * Can the patient safely return to the preadmission environment? Yes * Has this patient been hospitalized within the prior 30 days at any hospital? No Coverage Notice Reviewer: [email or web address] Merlos Notice Issued Date-Time: 10/22/2019 13:39 Notice Type: IM Discharge Notice Notice Delivered To: Patient Relationship to Patient: Data Communications Engineer Name: Delivery Method: HAND - Hand Delivered Clair Days: Prior Verbal Notification: Recipient Understood Notice: Yes Recipient Signature: Yes Med Rec Note Co-signed by Attending: Coverage Notice Comment: Reviewer: [id number] Merlos Notice Issued Date-Time: 10/22/2019 13:39 Notice Type: Patient Choice Letter Notice Delivered To: Relationship to Patient: Data Communications Engineer Name: Delivery Method: - Clair Days: Prior Verbal Notification: Recipient Understood Notice: Recipient Signature: Med Rec Note Co-signed by Attending: Coverage Notice Comment: [facility] Last DP export: 10/15/19 9:55 a Patient Name: HE MELARA Page [phone] at 1713 All edits/amendments must be made on the electronic document DICTATION DATE: 10/23/191711 PSYCHOMETRIC EXAMINER: ALVINO 10/23/191711 RPT#: [id number] DC DATE:10/22/19 STATUS: DIS IN [facility] [address] [place] [address] END OF REPORT
== END 2019-10-22 17:40 | DRG 542 ==
LOC: D.ER 22:43 → D.MS 10-10 01:52
PROVIDERS: Family Medicine; ADMIT Family Medicine; ATTEND Family Medicine
DX: M48.54XA Collapsed vertebra, not elsewhere classified, thoracic region, initial encounter for fracture (principal); G93.41 Metabolic encephalopathy; J96.01 Acute respiratory failure with hypoxia; J18.1 Lobar pneumonia, unspecified organism; J44.1 Chronic obstructive pulmonary disease with (acute) exacerbation; N17.9 Acute kidney failure, unspecified; E87.1 Hypo-osmolality and hyponatremia; G47.33 Obstructive sleep apnea (adult) (pediatric); I48.91 Unspecified atrial fibrillation; F32.9 Major depressive disorder, single episode, unspecified; K21.9 Gastro-esophageal reflux disease without esophagitis; W19.XXXA Unspecified fall, initial encounter; I10 Essential (primary) hypertension; E83.42 Hypomagnesemia; R74.8 Abnormal levels of other serum enzymes

== ENCOUNTER 2019-10-22 18:25 | Inpatient (IN) | payer MEDICARE ==
[~2019-10-22] VITALS: Ht 162.6 cm; Wt 109.3 kg
[~2019-10-22 18:25] MED LIST: CHLORTHALIDONE25 MG PO; FENOFIBRATE134 MG PO; FISH OIL 1,0001 CA1 PO; FLUTICASONE PRO16 GM NASAL; LANOXIN125 MCG PO; LOPRESSOR25 MG PO; LOVENOX INJ100 MG/ML SC; METOPROLOL TART50 MG PO; MUCINEX600 MG PO; NEXIUM20 MG PO; PAXIL20 MG PO; TESSALON PERLE100 MG PO; XARELTO20 MG PO; ZYRTEC10 MG PO
--- NOTE | 2019-10-22 19:07 | NUR ---
RECIEVED PT PER WC.ROOM 1108A,ORIENTED TO ROOM AND SURROUNDINGS.CL IN REACH.
--- NOTE | 2019-10-22 20:22 | NUR ---
ADMIT TO ROOM 1108A WITH DIAGNOSIS OF ACUTE METABOLIC ENCEPHALOPATHY FOR PHYSICAL REHAB AND SERVICES OF DR FOFANA. AWAKE AND ALERT. RESPIRAITONS UNLABORED. SOME CONFUSION AND STRUGGLES ARTICULATING WORDS AND THOUGHTS. SEE ADMISSION ASSESSMENT. ASSISTED TO BATHROOM AND BACK TO BED. CALL LIGHT IN REACH.
[2019-10-22 22:02] VITALS: BP 137/83
[2019-10-22 23:04] VITALS: BP 137/83; BMI 41.4
--- NOTE | 2019-10-23 01:14 | NUR ---
RESTING QUIETLY IN BED. RESPIRATIONS UNALBORED. NO DISTRESS NOTED.
--- NOTE | 2019-10-23 02:50 | NUR ---
ASSISTED TO BATHROOM AND BACK TO BED. HAIR COMBED AND REBRAIDED. 3 KENNY INTACT TO BACK OF HEAD. REMINDED TO ALWAYS CALL FOR ASSISTANCE BEFORE GETTING OUT OF BED. VOICES UNDERSTANDING.
[2019-10-23 07:35] LABS: ANION GAP 11.7 mmol/L (8-16); CALCIUM 10.1 mg/dL (8.5-10.1); CARBON DIOXIDE 27.4 mmol/L (21.0-32.0); CREATININE - SERUM 1.8 mg/dL (0.6-1.3); POTASSIUM - SERUM 4.1 mmol/L (3.5-5.1)
[2019-10-23 07:37] LABS: BASOPHILS 0.6 % (0-2); EOSINOPHILS 1.3 % (0-7); HEMATOCRIT 50.3 % (36.0-48.0); HEMOGLOBIN 17.3 g/dL (12-16); IMMATURE GRANULOCYTES 0.7 % (0-5); LYMPHOCYTES 22.5 % (15-50); MCH 32.9 pg (26.0-34.0); MCHC 34.4 g/dL (31.0-37.0); MCV 95.6 fL (80.0-100.0); MEAN PLATELET VOLUME 11.7 fL (7.4-10.4); NEUTROPHILS 59.9 % (40-80); PLATELET COUNT 108 10x3/uL (130-400); RBC 5.26 10x6/uL (4.00-5.40); RDW 13.4 % (11.5-14.5)
[2019-10-23 07:39] LABS: WBC 6.9 10x3/uL (4.8-10.8)
[2019-10-23 08:00] VITALS: BP 113/63
--- NOTE | 2019-10-23 11:00 | NUR ---
I have reviewed this patient and I concur with the Shift Assessment completed by the Licensed Practical Nurse today this shift.
--- NOTE | 2019-10-23 12:23 | NUR ---
PT RESTING IN BED WITH EYES OPEN CALL LIGHT IN REACH WILL MONITER
[2019-10-23 13:11] VITALS: Ht 162.6 cm; Wt 109.3 kg
--- NOTE | 2019-10-23 14:39 | NUR ---
CARE TEAM MEETING: PATIENT IS NEW TO UNIT AND WILL BE RA AT NEXT MEETING. WILL CONTINUE TO FOLLOW WITH PATIENT.
--- NOTE | 2019-10-23 17:26 | NUR ---
PT RESTING IN BED EYES OPEN CALL LIGHT IN REACH NO PROBLEMS WILL MONITER
--- NOTE | 2019-10-23 18:50 | NUR ---
RECEIVED PT LYING IN BED ON RIGHT SIDE EYES CLOSED RESTING. RR EVEN AND UNLABORED. CONTINUES ON 2L VIA NC. EASILY AROUSED WITH VERBAL STIMULI. PT CONFUSED ALERT TO SELF. REORIENTED TO PLACE, TIME, AND SITUATION. CALL LIGHT WITHIN REACH. FALL PRECAUTIONS IN PLACE. CPOC
[2019-10-23 21:59] VITALS: BP 117/83
--- NOTE | 2019-10-24 00:50 | NUR ---
PT LYING IN BED ON LEFT SIDE EYES CLOSED RESTING QUIETLY. RR EVEN AND UNLABORED. CONTINUES ON 2L VIA NC. CALL LIGHT WITHIN REACH. BED ALARM ON. CPOC
--- NOTE | 2019-10-24 03:08 | NUR ---
PT LYING IN BED ON LEFT SIDE EYES CLOSED RESTING QUIETLY. RR EVEN AND UNLABORED. CALL LIGHT WITHIN REACH. FALL PRECAUTIONS IN PLACE. CPOC
[2019-10-24 06:26] VITALS: BP 122/56
--- NOTE | 2019-10-24 07:28 | NUR ---
RESTING IN BED WITH EYES CLOSED, RESP EVEN AND UNLABORED, NO S/S OF DISTRESS NOTED, C/L AND FLUIDS IN REACH.
[2019-10-24 07:38] VITALS: BP 100/67
--- NOTE | 2019-10-24 12:04 | NUR ---
UP IN W/C IN ROOM, DENIES ANY NEEDS AT THIS TIME, C/L AND FLUIDS IN REACH.
--- NOTE | 2019-10-24 15:53 | NUR ---
RESTING IN BED WITH WITH EYES CLOSED, RESP EVEN AND UNLABORED O2 RUNNING AT 2LPM, NO S/S OF DISTRESS NOTED, C/L AND FLUIDS IN REACH.
--- NOTE | 2019-10-24 19:10 | NUR ---
RECEIVED PT SITTING UP IN BED FININSHING DINNER. DAUGHTER AT BEDSIDE. ALERT AND ORIENTED X3. DENIES ANY OTHER NEEDS OR PAIN. NO SIGNS OF ACUTE DISTRESS NOTED. CONTINUES ON 2L VIA NC. CALL LIGHT AND WATER WITHIN REACH. FALL PRECAUTIONS IN PLACE. CPOC
[2019-10-24 21:48] VITALS: BP 107/77
--- NOTE | 2019-10-24 23:49 | NUR ---
QUIET HOURS. PT LYING IN BED ON RIGHT SIDE EYES CLOSED RESTING QUIETLY. RR EVEN AND UNLABORED. CONTINUES ON 2L VIA NC. CALL LIGHT WITHIN REACH. FALL PRECAUTIONS IN PLACE. CPOC
--- NOTE | 2019-10-25 01:58 | NUR ---
PT LYING IN BED SUPINE EYES CLOSED RESTING QUIETLY. RR EVEN AND UNLABORED. CALL LIGHT WITHIN REACH. FALL PRECAUTIONS IN PLACE. CPOC
--- NOTE | 2019-10-25 04:58 | NUR ---
PT LYING IN BED EYES CLOSED RESTING QUIETLY. RR EVEN AND UNLABORED. CALL LIGHT WITHIN REACH. FALL PRECAUTIONS IN PLACE. CPOC
[2019-10-25 05:44] VITALS: BP 130/63
[2019-10-25 06:32] LABS: BASOPHILS 0.7 % (0-2); HEMATOCRIT 46.1 % (36.0-48.0); HEMOGLOBIN 15.8 g/dL (12-16); IMMATURE GRANULOCYTES 0.5 % (0-5); LYMPHOCYTES 31.4 % (15-50); MCH 32.5 pg (26.0-34.0); MCHC 34.3 g/dL (31.0-37.0); MCV 94.9 fL (80.0-100.0); MEAN PLATELET VOLUME 11.4 fL (7.4-10.4); MONOCYTES 14.7 % (2-11); NEUTROPHILS 50.7 % (40-80); PLATELET COUNT 165 10x3/uL (130-400); RBC 4.86 10x6/uL (4.00-5.40); RDW 13.3 % (11.5-14.5); WBC 5.9 10x3/uL (4.8-10.8)
[2019-10-25 06:57] LABS: ALBUMIN 3.2 g/dL (3.4-5.0); ANION GAP 10.8 mmol/L (8-16); BILIRUBIN - TOTAL 1.39 mg/dL (0.2-1.3); CALCIUM 10.2 mg/dL (8.5-10.1); CARBON DIOXIDE 27.6 mmol/L (21.0-32.0); CREATININE - SERUM 1.9 mg/dL (0.6-1.3); DIGOXIN 0.76 ng/mL (0.90-2.00); POTASSIUM - SERUM 3.4 mmol/L (3.5-5.1); PROTEIN - SERUM 7.6 g/dL (6.4-8.2)
[2019-10-25 08:00] VITALS: BP 116/58
--- NOTE | 2019-10-25 08:04 | NUR ---
SITTING UP IN BED EATING BREAKFAST, DENIES ANY NEEDS AT THIST TIME, C/L AND FLUIDS IN REACH.
--- NOTE | 2019-10-25 12:21 | NUR ---
RESTING IN BED WITH EYES CLOSED, O2 RUNNING AT 2LPM RESP EVEN AND UNLABORED, NO S/S OF DISTRESS NOTED, C/L AND FLUIDS IN REACH.
--- NOTE | 2019-10-25 14:06 | NUR ---
Nutrition Follow-up: Chart reviewed. Noted MD to correct K. Diet: Cardiac + Boost TID PO intake: ~63% average x last 6 meals. Patient was asleep at time of RD visit Last BM: 10/24/19. WT: 241# (10/23/19) Meds noted: Micro-K Labs noted: Na 130(L), K 3.4(L), BUN 56(H), Cr 1.9(H), GFR 27(L), t bili 1.39(H), AST 46(H), ALT 115(H) Recommend continue current diet. RD following.
--- NOTE | 2019-10-25 15:56 | NUR ---
RESTING IN BED WITH EYES CLOSED, RESP EVEN AND UNLABORED O2 RUNNING AT 2LPM, NO S/S OF DISTRESS NOTED, C/L AND FLUIDS IN REACH.
--- NOTE | 2019-10-25 19:18 | NUR ---
RESTING IN BED WITH EYES CLOSED AND RESPIRATIONS UNLABORED. NO DISTRESS NOTED. CALL LIGHT IN REACH.
[2019-10-25 19:42] VITALS: BP 92/65
--- NOTE | 2019-10-26 05:25 | NUR ---
QUIET HOURS. NO ACUTE CHANGES IN CONDITION THIS SHIFT. RESTING IN BED WITH NO DISTRESS NOTED.
[2019-10-26 05:57] VITALS: BP 144/68
--- NOTE | 2019-10-26 06:13 | NUR ---
BLOOD PRESSURE 144/68. METOPROLOL GIVEN. SALINE LOCK TO LEFT FOREARM DC'D WITH CANNULA INTACT. TOLERATED WITHOUT C/O DISCOMFORTS.
[2019-10-26 06:20] LABS: HEMATOCRIT 46.9 % (36.0-48.0); HEMOGLOBIN 15.8 g/dL (12-16); LYMPHOCYTES 32.4 % (15-50); MCH 32.4 pg (26.0-34.0); MCHC 33.7 g/dL (31.0-37.0); MCV 96.3 fL (80.0-100.0); MEAN PLATELET VOLUME 10.9 fL (7.4-10.4); PLATELET COUNT 148 10x3/uL (130-400); RBC 4.87 10x6/uL (4.00-5.40); RDW 13.6 % (11.5-14.5); WBC 6.1 10x3/uL (4.8-10.8)
[2019-10-26 08:00] VITALS: BP 104/70
--- NOTE | 2019-10-26 08:00 | NUR ---
PT RESTING IN BED WITH EYES OPEN CALL LIGHT IN REACH NO PROBLEMS WILL MONITER
--- NOTE | 2019-10-26 15:32 | NUR ---
I have reviewed this patient and I concur with the Shift Assessment completed by the Licensed Practical Nurse today this shift.
--- NOTE | 2019-10-26 18:26 | NUR ---
PT RESTING IN BED WITH EYES OPEN CALL LIGHT IN REACH NO PROBLEMS WILL MONITER
[2019-10-26 19:57] VITALS: BP 118/61
--- NOTE | 2019-10-26 20:01 | NUR ---
AWAKE AND ALERT. RESTING IN BED WITH RESPIRAITONS UNLABORED WITH O2/2L ON PER NASAL CANNULA. KENNY INTACT TO BACK OF HEAD. NO NEEDS VOICED. CALL LIGHT IN REACH.
--- NOTE | 2019-10-26 22:00 | NUR ---
ASSISTED TO BATHROOM AND BACK TO BED. RESPIRATIONS UNLABORED. O2/2L ON PER NASAL CANNULA.
--- NOTE | 2019-10-27 00:05 | NUR ---
SLEEPING WITH RESPIRAITONS UNLABORED. NO DISTRESS NOTED.
--- NOTE | 2019-10-27 02:31 | NUR ---
CONTINUES SLEEPING WITH NO DISTRESS NOTED.
--- NOTE | 2019-10-27 05:28 | NUR ---
QUIET HOURS. NO ACUTE CHANGES IN CONDITION THIS SHIFT. RESTING IN BED WITH NO DISTRESS NOTED.
[2019-10-27 06:59] LABS: ALBUMIN 3.2 g/dL (3.4-5.0); ANION GAP 10.6 mmol/L (8-16); BILIRUBIN - TOTAL 1.24 mg/dL (0.2-1.3); CALCIUM 10.2 mg/dL (8.5-10.1); CARBON DIOXIDE 28.3 mmol/L (21.0-32.0); CREATININE - SERUM 1.8 mg/dL (0.6-1.3); PHOSPHOROUS 3.3 mg/dL (2.5-4.9); POTASSIUM - SERUM 3.9 mmol/L (3.5-5.1); PROTEIN - SERUM 7.4 g/dL (6.4-8.2)
--- NOTE | 2019-10-27 08:33 | NUR ---
PT RESTING IN BED WITH EYES OPEN CALL LIGHT IN REACH WILL MONITER
[2019-10-27 11:39] VITALS: BP 117/64
--- NOTE | 2019-10-27 17:18 | NUR ---
I have reviewed this patient and I concur with the Shift Assessment completed by the Licensed Practical Nurse today this shift.
--- NOTE | 2019-10-27 17:58 | NUR ---
PT RESING IN BED WITH EYES OPEN CALL LIGHT IN REACH NO PROBLEMS WILL MONITER
[2019-10-27 19:55] VITALS: BP 98/50
--- NOTE | 2019-10-27 20:01 | NUR ---
AWAKE AND ALERT. RESTING IN BED WITH O2/2L ON PER NASAL CANNULA. KENNY INTACT TO BACK OF HEAD. NO DISTRESS NOTED.
--- NOTE | 2019-10-27 23:05 | NUR ---
RESTING IN BED WITH RESPIRATIONS UNLABORED. NO DISTRESS NOTED.
--- NOTE | 2019-10-28 01:30 | NUR ---
SLEEPING WITH RESPIRAITONS UNLABORED. NO DISTRESS NOTED.
--- NOTE | 2019-10-28 05:03 | NUR ---
QUIET HOURS. NO ACUTE CHANGES IN CONDITION THIS SHIFT. RESTING IN BED WITH NO DISTRESS NOTED.
--- NOTE | 2019-10-28 07:17 | NUR ---
RESTING WO C/O PAIN. NO DISTRESS NOTED. CL IN REACH.
[2019-10-28 08:03] VITALS: BP 109/76
[2019-10-28 08:43] LABS: HEMATOCRIT 48.1 % (36.0-48.0); MCH 32.1 pg (26.0-34.0); MCHC 33.3 g/dL (31.0-37.0); MCV 96.4 fL (80.0-100.0); MEAN PLATELET VOLUME 11.3 fL (7.4-10.4); NEUTROPHILS 57.6 % (40-80); PLATELET COUNT 154 10x3/uL (130-400); RBC 4.99 10x6/uL (4.00-5.40); RDW 13.7 % (11.5-14.5); WBC 5.7 10x3/uL (4.8-10.8)
--- NOTE | 2019-10-28 10:49 | NUR ---
PARTICIPATED IN THERAPY THIS AM.
--- NOTE | 2019-10-28 14:39 | NUR ---
RESTING IN BED WO DISTRESS. RESP EVEN AND UNLABORED. NO CHANGE IN ASSESSMENT.
--- NOTE | 2019-10-28 19:13 | NUR ---
RECEIVED PT LYING IN BED ON RIGHT SIDE EYES CLOSED RESTING QUIETLY. EASILY AROUSED WITH VERBAL STIMULI. DENIES ANY NEEDS OR PAIN. ALERT AND ORIENTED X4. SHIFT ASSESSMENT COMPLETE. CONTINUES ON 2L VIA NC. CALL LIGHT AND WATER WITHIN REACH. FALL PRECAUTIONS IN PLACE. CPOC
[2019-10-28 20:26] VITALS: BP 103/67
--- NOTE | 2019-10-29 00:28 | NUR ---
ASSISTED PT FROM BATHROOM. PT PERFORMED HAND HYGIENE UNASSISTED. ASSISTED WITH TRANSFER FROM W/C TO BED WITH SBA. CALL LIGHT WITHIN REACH. BED ALARM ON. CPOC
--- NOTE | 2019-10-29 04:00 | NUR ---
ASSISTED PT TO RESTROOM AND BACK TO BED WITH SBA. PT PERFORMED HAND HYGIENE. NO OTHER NEEDS VOICED. CALL LIGHT WITHIN REACH. FALL PRECAUTIONS IN PLACE. CPOC
--- NOTE | 2019-10-29 06:55 | NUR ---
RESTING WO DISTRESS. RESP EVEN AND UNLABORED.CL IN REACH.
[2019-10-29 07:55] VITALS: BP 122/49
--- NOTE | 2019-10-29 11:40 | NUR ---
SHOWER TODAY PER STAFF.
--- NOTE | 2019-10-29 11:41 | NUR ---
PARTICIPATING IN THERAPY.
--- NOTE | 2019-10-29 15:22 | NUR ---
NO CHANGE IN ASSESSMENT. RESTING IN ROOM WO C/O PAIN. CL IN REACH.
--- NOTE | 2019-10-29 15:39 | NUR ---
Nutrition Follow-up: Chart reviewed. Noted per MD notes that patient with low BP, dizziness and not tolerating therapy well. Diet: Cardiac + Boost TID PO intake: ~63% average x last 10 meals. Patient was asleep at time of RD rounding. Last BM: last recorded 10/24/19. Wt: 241# (10/23/19), no new weight Meds noted: micro-K Labs noted: Na 131(L), BUN 53(H), Cr 1.8(H), GFR 28(L), Ca 10.2(H), Alb 3.2(L) Recommend continue current diet. Consider increase in bowel regimen if last BM truely [address] following.
--- NOTE | 2019-10-29 18:30 | NUR ---
SITTING IN CHAIR. VISITOR AT BS. RESP EVEN AND UNLABORED. CL IN REACH.
[2019-10-29 19:11] VITALS: BP 116/65
--- NOTE | 2019-10-29 19:11 | NUR ---
RECEIVED PT LYING IN BED ON LEFT SIDE AWAKE. ALERT AND ORIENTED X4. VISITING WITH FAMILY. DENIES ANY NEEDS OR PAIN. NO SIGNS OF ACUTE DISTRESS NOTED. VS STABLE. SHIFT ASSESSMENT COMPLETE. CONTINUES ON 2L VIA NC. CALL LIGHT AND WATER WITHIN REACH. FALL PRCAUTIONS IN PLACE. CPOC
--- NOTE | 2019-10-29 23:58 | NUR ---
PT LYING IN BED ON LEFT SIDE EYES CLOSED RESTING COMFORTABLY. RR EVEN AND UNLABORED. CALL LIGHT WITHIN REACH. FALL PRECAUTIONS IN PLACE. CPOC
--- NOTE | 2019-10-30 03:11 | NUR ---
PT LYING IN BED ON RIGHT SIDE EYES CLOSED RESTING QUIETLY. RR EVEN AND UNLABORED. CALL LIGHT WITHIN REACH. FALL PRECAUTIONS IN PLACE. CPOC
--- NOTE | 2019-10-30 05:46 | NUR ---
PT LYING IN BED ON RIGHT SIDE EYES CLOSED RESTING QUIETLY. RR EVEN AND UNLABORED. CALL LIGHT AND WATER WITHIN REACH. FALL PRECAUTIONS IN PLACE. CPOC
[2019-10-30 06:01] LABS: HEMATOCRIT 45.8 % (36.0-48.0); HEMOGLOBIN 15.3 g/dL (12-16); LYMPHOCYTES 31.2 % (15-50); MCH 32.2 pg (26.0-34.0); MCHC 33.4 g/dL (31.0-37.0); MCV 96.4 fL (80.0-100.0); MEAN PLATELET VOLUME 11.1 fL (7.4-10.4); NEUTROPHILS 50.5 % (40-80); PLATELET COUNT 153 10x3/uL (130-400); RBC 4.75 10x6/uL (4.00-5.40); RDW 13.8 % (11.5-14.5); WBC 5.4 10x3/uL (4.8-10.8)
[2019-10-30 06:04] LABS: ANION GAP 11.5 mmol/L (8-16); CALCIUM 10.4 mg/dL (8.5-10.1); CARBON DIOXIDE 27.2 mmol/L (21.0-32.0); CREATININE - SERUM 1.8 mg/dL (0.6-1.3); POTASSIUM - SERUM 3.7 mmol/L (3.5-5.1)
--- NOTE | 2019-10-30 08:10 | NUR ---
SITTING UP ON SIDE OF BED EATING BREAKFAST, DENIES ANY NEEDS AT THIS TIME, C/L AND FLUIDS IN REACH.
[2019-10-30 08:27] VITALS: BP 126/70
--- NOTE | 2019-10-30 11:00 | NUR ---
I have reviewed this patient and I concur with the Shift Assessment completed by the Licensed Practical Nurse today this shift.
--- NOTE | 2019-10-30 12:07 | NUR ---
UP IN W/C VISITING WITH DAUGHTER, DENIES ANY NEEDS AT THIS TIME, C/L AND FLUIDS IN REACH.
--- NOTE | 2019-10-30 14:56 | NUR ---
CARE TEAM MEETING: PATIENT DAUGHTER, AND PHONE CONFERENCE WITH HER NEICE FOR THE MEETING. QUESTIONS AND CONCERNS WERE ADDRESSED.TENATIVE DISCHARGE DATE IS 11/01/19. WILL CONTINUE TO FOLLOW WITH PATIENT.
--- NOTE | 2019-10-30 16:05 | NUR ---
RESTING IN BED WITH EYES CLOSED, RESP EVEN AND UNLABORED, O2 RUNNING AT 2LPM, NO S/S OF DISTRESS NOTED, C/L AND FLUIDS IN REACH.
--- NOTE | 2019-10-30 19:25 | NUR ---
AWAKE AND ALERT. RESTING IN BED WITH RESPIRAITONS UNLABORED. C/O HEADACHE. WILL CHECK MAR FOR PRN TREATMENTS. VISITOR IN ROOM.
[2019-10-30 21:29] VITALS: BP 107/50
--- NOTE | 2019-10-31 03:09 | NUR ---
SLEEPING WITH RESPIRATIONS UNLABORED. NO DISTRESS NOTED.
--- NOTE | 2019-10-31 05:05 | NUR ---
QUIET HOURS. NO ACUTE CHANGES IN CONDITION THIS SHIFT. RESTING IN BED WITH RESPIRATIONS UNLABORED.
[2019-10-31 07:06] LABS: ALBUMIN 3.4 g/dL (3.4-5.0); ANION GAP 9.1 mmol/L (8-16); BILIRUBIN - TOTAL 1.17 mg/dL (0.2-1.3); CALCIUM 10.4 mg/dL (8.5-10.1); CARBON DIOXIDE 30.5 mmol/L (21.0-32.0); CREATININE - SERUM 1.8 mg/dL (0.6-1.3); MAGNESIUM - SERUM 1.4 mg/dL (1.8-2.4); PHOSPHOROUS 2.9 mg/dL (2.5-4.9); POTASSIUM - SERUM 3.6 mmol/L (3.5-5.1); PROTEIN - SERUM 7.3 g/dL (6.4-8.2); THYROID STIMULATING HORMONE 2.08 uIU/mL (0.36-3.74)
[2019-10-31 07:46] LABS: HEMATOCRIT 48.2 % (36.0-48.0); HEMOGLOBIN 16.6 g/dL (12-16); LYMPHOCYTES 36.9 % (15-50); MCH 32.9 pg (26.0-34.0); MCHC 34.4 g/dL (31.0-37.0); MCV 95.6 fL (80.0-100.0); MEAN PLATELET VOLUME 10.8 fL (7.4-10.4); NEUTROPHILS 49.4 % (40-80); PLATELET COUNT 156 10x3/uL (130-400); RBC 5.04 10x6/uL (4.00-5.40); RDW 13.7 % (11.5-14.5); WBC 4.3 10x3/uL (4.8-10.8)
--- NOTE | 2019-10-31 07:53 | RHP ---
PATIENT: HE MELARA MEDICAL RECORD: [id number] ACCOUNT: [id number] [facility] [id number] : [birth year] ADMISSION DATE: 10/22/19 REHABILITATION HISTORY AND PHYSICAL EXAMINATION POST ADMISSION PHYSICIAN EXAMINATION ADMITTING DIAGNOSIS: Acute metabolic encephalopathy. HISTORY OF PRESENT ILLNESS: The patient is an 84-year-old female patient, who presented via EMS with a low pulse ox and acute confusion. She really does not wear any oxygen at home. Her sat was 88%. She has been taking a muscle relaxer at bedtime due to some back pain as a result of a fall the previous day, hitting her head. She had gone to the ED and was sent home, got a history of chronic obstructive pulmonary disease, obstructive sleep apnea, atrial fibrillation. The patient was on a CPAP machine at home, but did not use any supplemental oxygen. CT of her head was essentially normal. Creatinine was noted to be 1.7. She was admitted to the acute hospital with acute exacerbation of chronic obstructive pulmonary disease, metabolic encephalopathy, acute kidney injury and T12 compression fracture, been seen and followed by neurosurgery and she is going to be set up for an outpatient kyphoplasty. She has had a cardiology consult and followed due to uncontrolled atrial fibrillation with rapid ventricular response. She is on metoprolol and oral digoxin. An echo showed an ejection fraction of 30% to 35%. She has also been followed by nephrology, GI also saw her due to elevated liver enzymes. She has been seeing physical therapy and has progressed slowly during her acute hospital stay. She has been monitored closely for pain control for her compression fracture, telemetry for her uncontrolled AFib. She is on supplemental O2. She is on anticoagulation, medication adjustments are being done. She has got pain control. She has got impaired mobility, decreased range of motion, decreased strength, gait disturbance, limited safety awareness. She is a medical complexity and risk for fall. She needs cues for equipment. She has got low endurance, she has got unsteady gait and balance. She fatigues easily, inability to care for self. These are all barriers to her discharge home. She lives at home with a roommate, was independent with ADLs and mobility prior to this, using a single point cane. Currently set up for mod assist for ADLs, mod to max assist for mobility. She will use a TLSO brace to her back. She and her roommate plan for her to return home at her prior level of functioning or better if possible. COMORBIDITIES: Include weakness, obesity, COPD, metabolic encephalopathy, elevated transaminases, obstructive sleep apnea, coagulopathy, acute kidney injury, low magnesium, low sodium, depression, gastroesophageal reflux disease, hypertension, deconditioning. PAST MEDICAL HISTORY: Significant for atrial fib, COPD, obstructive sleep apnea with use of BiPAP. PAST SURGICAL HISTORY: None. ALLERGIES: PENICILLIN. CURRENT HOME MEDICATIONS: Include digoxin now 0.125 mg on Monday, Monday, , and Monday. She is on Paxil 10 mg daily, Flonase nasal spray 2 sprays daily. She is on TriCor 145 mg daily, metoprolol 25 mg every 8 hours. She is on Lovenox 100 mg subQ b.i.d., Mucinex 600 mg b.i.d. She is on omega-3 one cap b.i.d., Protonix 40 mg daily, chlorthalidone 12.5 mg at bedtime, Mary Jane HISTORY AND PHYSICAL [id number] HE MELARA 60 mg at bedtime and Tessalon Perles 100 mg t.i.d. HABITS: No alcohol or tobacco use. FAMILY HISTORY: Noncontributory. SOCIAL HISTORY: The patient hopes to return back home and get back to her prior level of functioning. REVIEW OF SYSTEMS: GENERAL: Does complain of weakness and fatigue. HEENT: Denies cold, cough, or congestion. CARDIOVASCULAR: Denies any chest pain. PHYSICAL EXAMINATION: VITAL SIGNS: Stable, afebrile. GENERAL: A morbidly obese female, in no distress upon exam. HEENT: Normocephalic and atraumatic. Mucosa moist. NECK: Supple. No lymphadenopathy. LUNGS: Clear in upper noel with decreased breath sounds in the bases. HEART: Irregular rate and rhythm. ABDOMEN: Soft, benign, obese. EXTREMITIES: No clubbing, cyanosis or edema. NEUROLOGIC: She does have proximal muscle weakness. LABORATORY DATA: Pending at this time. ASSESSMENT: This is an 84-year-old female patient admitted to rehab with a working diagnosis of acute metabolic encephalopathy. The patient has potential to make improvement. We instituted the following multidisciplinary therapies including, but not limited to physical, occupational, respiratory, speech, nutritional services, prosthetics and orthotics. Given her complex medical condition and risks for more complications, rehabilitation services cannot be provided at a low level of care such as [facility] facility. PLAN: 1. Admit to [facility] for inpatient therapy to include the following disciplines; A. Physical therapy to improve gait, all transfer skills and bed mobility to a modified independent level. B. Occupational therapy to improve activities of daily living. C. Case management to help with discharge planning and placement options. D. Nutrition to assist with nutritional needs. E. Rehabilitation nursing to assist in monitoring the patient's underlying medical conditions and to assist with any type of bowel or bladder management. 2. The patient's current medication and medical care will be continued. 3. The patient will be placed on standard fall precautions. 4. The patient's estimated length of stay is approximately 7-10 days. 5. We will discuss this patient during care team staff meeting today. We will go ahead and continue on appropriate home medications. We will watch her heart rate closely, watch for any signs of bleeding, is on her Lovenox and I will see again in the a.m. TRANSINT:[id number] Voice Confirmation ID: [id number] DOCUMENT ID: [id number] HISTORY AND PHYSICAL [id number] HE MELARA notes whether there has been none or any medical/functional change since admission: - No change since prescreen. JOSE ANGEL attests patient continues to be appropriate for IRF: - Continues to be appropriate. APOLONIA FOFANA MD at 0753 CC: [id number] DICTATION DATE: 10/23/19 0718 SCOOP MACHINE OPERATOR: 10/23/19 1208 ADM IN [facility] [address] [id number]
--- NOTE | 2019-10-31 12:00 | NUR ---
I have reviewed this patient and I concur with the Shift Assessment completed by the Licensed Practical Nurse today this shift.
--- NOTE | 2019-10-31 13:28 | NUR ---
PT RESTING IN BED WITH EYES OPEN CALL LIGHT IN REACH WILL MONITER
--- NOTE | 2019-10-31 18:42 | NUR ---
PT RESTING IN BED WITH EYES OPEN CALL LIGHT IN REACH NO PROBLEMS WILL MONITER
--- NOTE | 2019-10-31 20:05 | NUR ---
AWAKE AND ALERT. RESTING IN BED WITH RESPIRAITONS UNLABORED. NO DISTRESS NOTED. CALL LIGHT IN REACH.
--- NOTE | 2019-11-01 02:54 | NUR ---
SLEEPING WITH NO DISTRESS NOTED.
--- NOTE | 2019-11-01 05:20 | NUR ---
QUIET HOURS. NO ACUTE CHANGES IN CONDITION THIS SHIFT. RESTING IN BED WITH NO DISTRESS NOTED.
[2019-11-01 06:50] LABS: ALBUMIN 2.9 g/dL (3.4-5.0); BILIRUBIN - TOTAL 1.32 mg/dL (0.2-1.3); CALCIUM 9.8 mg/dL (8.5-10.1); CREATININE - SERUM 1.8 mg/dL (0.6-1.3); MAGNESIUM - SERUM 1.3 mg/dL (1.8-2.4); POTASSIUM - SERUM 4.1 mmol/L (3.5-5.1); PROTEIN - SERUM 7.2 g/dL (6.4-8.2)
[2019-11-01 06:53] LABS: ANION GAP 14.9 mmol/L (8-16); CARBON DIOXIDE 22.2 mmol/L (21.0-32.0)
[2019-11-01 08:12] LABS: HEMATOCRIT 49.8 % (36.0-48.0); HEMOGLOBIN 16.9 g/dL (12-16); LYMPHOCYTES 33.9 % (15-50); MCH 32.7 pg (26.0-34.0); MCHC 33.9 g/dL (31.0-37.0); MCV 96.3 fL (80.0-100.0); MEAN PLATELET VOLUME 10.8 fL (7.4-10.4); NEUTROPHILS 49.6 % (40-80); PLATELET COUNT 156 10x3/uL (130-400); RBC 5.17 10x6/uL (4.00-5.40); RDW 14.3 % (11.5-14.5); WBC 4.8 10x3/uL (4.8-10.8)
[2019-11-01 08:44] VITALS: BP 106/71
--- NOTE | 2019-11-01 10:42 | NUR ---
PATIENT DISCHARGING HOME TODAY WITH FAMILY. [employer] [facility] WILL PROVIDE THERAPY AT HOME. NO NEW DME NEEDED AT THIS TIME. DR. KANG/EMELY BOTTLE CARRIER 11/08/19 @ 8:00, CARSON LAIRD BOTTLE CARRIER 11/07/19 @ 11:40. CHELSI SIGNED, IMM SERVED AND EXPLAINED. ONE GIVEN TO PATIENT AND ONE FILED IN CHART. NO COMPARE DATA REVIEWED PER PATIENT FAMILY REQUEST. DISCHARGE INSTRUCTIONS FAXED TO PCP, HOME HEALTH AND REVIEWED WITH PATIENT AND FAMILY PER PRIMARY NURSE.
--- NOTE | 2019-11-01 12:20 | NUR ---
DISCHARGE INSTRUCTIONS REVIEWED WITH PT AND HAS NO QUESTIONS. LEFT FLOOR VIA W/C WITH ALL PERSONAL BELONGINGS AND LEFT FACILITY VIA PRIVATE VEHICLE WITH A FRIEND.
== END 2019-11-01 14:58 | disposition home health service (06) | DRG 70 ==
LOC: D.REHAB 18:25
PROVIDERS: Internal Medicine Nephrology; ADMIT Emergency Medicine; ATTEND Emergency Medicine
DX: G93.41 Metabolic encephalopathy (principal); J96.01 Acute respiratory failure with hypoxia; J18.9 Pneumonia, unspecified organism; N17.9 Acute kidney failure, unspecified; J44.1 Chronic obstructive pulmonary disease with (acute) exacerbation; J98.11 Atelectasis; E87.1 Hypo-osmolality and hyponatremia; G47.33 Obstructive sleep apnea (adult) (pediatric); I48.91 Unspecified atrial fibrillation; R53.1 Weakness; E66.9 Obesity, unspecified; K21.9 Gastro-esophageal reflux disease without esophagitis; I10 Essential (primary) hypertension; F32.9 Major depressive disorder, single episode, unspecified; M48.54XD Collapsed vertebra, not elsewhere classified, thoracic region, subsequent encounter for fracture with routine healing; E83.42 Hypomagnesemia